=== PATIENT | female | born 1985 | race Caucasian/White ===

== ENCOUNTER 2019-02-07 01:23 | Inpatient (IN) | payer MEDICAID ==
[2019-02-07] MEDS ORDERED: RINGERS SOLUTION,LACTATED 1,000 ML IV ONE (01:57)
[2019-02-07 02:02] LABS: APPEARANCE,URINE CLEAR; BILIRUBIN,URINE NEGATIVE (NEGATIVE); COLOR,URINE YELLOW; GLUCOSE, URINE NEGATIVE (NEGATIVE); KETONES,URINE NEGATIVE (NEGATIVE); LEUKOCYTE ESTERASE,URINE NEGATIVE (NEGATIVE); NITRITE,URINE NEGATIVE (NEGATIVE); PROTEIN,URINE NEGATIVE (NEGATIVE); UROBILINOGEN,URINE NEGATIVE mg/dL (<2.0)
[2019-02-07 02:16] LABS: ABSOLUTE BASOPHILS # (AUTO) 0.1 10^3/uL (0.0-0.2); ABSOLUTE EOSINOPHILS # (AUTO) 0.1 10^3/uL (0.0-0.6); ABSOLUTE LYMPHOCYTES (AUTO) 1.9 10^3/uL (0.5-4.7); ABSOLUTE MONOCYTES (AUTO) 0.6 10^3/uL (0.1-1.4); ABSOLUTE NEUT (AUTO) 6.3 10^3/uL (1.7-8.2); BASOPHILS % (AUTO) 0.7 % (0-2); EOSINOPHILS % (AUTO) 0.7 % (0-6); HEMATOCRIT 33.2 % (36.0-47.0); HEMOGLOBIN 11.5 g/dL (12.0-15.5); MEAN CORPUSCULAR HEMOGLOBIN 31.3 pg (27.0-33.4); MEAN CORPUSCULAR HGB CONC 34.6 g/dL (32.0-36.0); MEAN CORPUSCULAR VOLUME 91 fl (80-97); MONOCYTES % (AUTO) 6.2 % (3-13); PLATELET COUNT 205 10^3/uL (150-450); RED BLOOD COUNT 3.67 10^6/uL (3.72-5.28); RED CELL DISTRIBUTION WIDTH 12.1 % (11.5-14.0); SEGMENTED NEUTROPHILS % (AUTO) 71.4 % (42-78); TOTAL CELLS COUNTED % (AUTO) 100 %; WHITE BLOOD COUNT 8.9 10^3/uL (4.0-10.5)
[2019-02-07 02:21] LABS: URINE AMPHETAMINES SCREEN NEGATIVE; URINE BARBITURATES SCREEN NEGATIVE; URINE BENZODIAZEPINES SCREEN NEGATIVE; URINE COCAINE SCREEN NEGATIVE; URINE METHADONE SCREEN NEGATIVE; URINE PHENCYCLIDINE SCREEN NEGATIVE
[2019-02-07 02:34] LABS: URINE MARIJUANA (THC) SCREEN UNCONFIRMED POSITIVE
[2019-02-07] MEDS: RINGERS SOLUTION,LACTATED 1,000 ML IV PRN ×4 (05:37→12:50)
[2019-02-07] MEDS ORDERED: OXYTOCIN/NORMAL SALINE 20 UNIT/1,000 ML RTUINJ IV PRN ×2 (06:29→21:17)
[2019-02-07] MEDS ORDERED: OXYTOCIN 10 UNIT/ML VIAL ONE (08:03)
[2019-02-07] MEDS ORDERED: LIDOCAINE 1% INJ-PF (10 MG/ML) 30 ML SDV ONE (08:04)
[2019-02-07] MEDS ORDERED: MISOPROSTOL 0.2 MG TABLET ONE (08:04)
[2019-02-07] MEDS ORDERED: OXYTOCIN/NORMAL SALINE 20 UNIT/1,000 ML RTUINJ ONE (08:04)
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
[2019-02-07] MEDS ORDERED: PHENYLEPHRINE HCL INJ/PF 10 MG/1 ML SDV ONE (11:36)
[2019-02-07] MEDS ORDERED: FENTANYL CITRATE INJ/PF 100 MCG/2 ML AMPUL ONE (11:36)
[2019-02-07] MEDS ORDERED: EPHEDRINE SULFATE INJ 50 MG/1 ML AMPULE ONE (11:36)
[2019-02-07] MEDS ORDERED: FENTANYL/BUPIVACAINE/NS/PF 300 MCG/150 ML RTUINJ EPI ONE (11:37)
[2019-02-07] MEDS ORDERED: BUPIVACAINE HCL 0.25 % INJ/PF (2.5 MG/1 ML) 30 ML VIAL ONE (11:37)
--- NOTE | 2019-02-07 12:58 | Warning Signs in Babies ---
VOD Warning Signs Datetime Report Generated by [facility]: 02/07/2019 12:58 VOD#608 -Warning Signs in Babies: Viewed with Parent(s)/Family (02/07/2019 12:57:Pawan Toribio RN)
[2019-02-07] MEDS ORDERED: AMPICILLIN SOD INJ 2 GM VIAL ONE (17:34)
[2019-02-07] MEDS ORDERED: AMPICILLIN SODIUM 2 GM in NORMAL SALINE 100 ML IV ONE (18:00)
[2019-02-07] MEDS ORDERED: MEASLES,MUMPS&RUBELLA VACC/PF 0.5 ML VIAL SUBCUT PRN (21:17)
[2019-02-07] MEDS ORDERED: NA PHOS,M-B/NA PHOS,DI-BA (ADULT) 133 ML ENEMA PR PRN (21:17)
[2019-02-07] MEDS ORDERED: DIPHENHYDRAMINE HCL 25 MG CAPSULE PO PRN (21:17)
[2019-02-07] MEDS ORDERED: PROMETHAZINE HCL 25 MG SUPP.RECT PR PRN (21:17)
[2019-02-07] MEDS ORDERED: MAGNESIUM HYDROXIDE SUSP 30 ML UDCUP PO PRN (21:17)
[2019-02-07] MEDS ORDERED: ACETAMINOPHEN 650 MG SUPP.RECT PR PRN (21:17)
[2019-02-07] MEDS ORDERED: DIPH/PERTUSS(ACELL)/TETANUS VAC/PF 0.5 ML SYR (>=10YO) IM PRN (21:17)
[2019-02-07] MEDS ORDERED: DIBUCAINE 1% OINTMENT 56 GM TP PRN (21:17)
[2019-02-07] MEDS ORDERED: GLYCERIN/WITCH HAZEL LEAF 1 EACH MED..WIPE TP PRN (21:17)
[2019-02-07] MEDS ORDERED: PROMETHAZINE HCL 25 MG TABLET PO PRN (21:17)
[2019-02-07] MEDS ORDERED: PSEUDOEPHEDRINE HCL 30 MG TABLET PO PRN (21:17)
[2019-02-07] MEDS ORDERED: ZOLPIDEM TARTRATE 5 MG TABLET PO PRN (21:17)
[2019-02-07] MEDS ORDERED: PROMETHAZINE HCL INJ 25 MG/1 ML VIAL IV PRN (21:17)
[2019-02-07] MEDS ORDERED: BENZOCAINE/MENTHOL AEROSOL SPRAY 56 ML TOP PRN (21:17)
[2019-02-07] MEDS ORDERED: ACETAMINOPHEN WITH CODEINE #3 TABLET PO PRN (21:17)
[2019-02-07] MEDS ORDERED: AMPICILLIN SODIUM 1 GM in NORMAL SALINE 50 ML IV SCH (22:00)
--- NOTE | 2019-02-07 23:34 | Delivery Summary ---
Del Sum A-C Datetime Report Generated by CPN: 02/07/2019 23:33 DELIVERY PERSONNEL DELIVERY PERSONNEL: [id number] Delivery Doctor:: Sandro Cordoba MD Labor and Delivery Nurse:: Nalini Quintero RNgreen material value added assessor Nurse:: Valerie Nina RN Pure Pak Machine Operator/COUNTERSINKER: Madeline Thomas, ST MATERNAL INFORMATION Delivery Anesthesia: Epidural Medications After Delivery: Pitocin Bolus-Please Comment; Pitocin Drip 20 Units/1000ml NSS Estimated Blood Loss (ml): 250 Maternal Complications: Premature Rupture of Membranes LABOR SUMMARY EDC: 02/02/2019 00:00 No. Babies in Womb: 1 Attempted: No Labor Anesthesia: Epidural LABOR INFORMATION Reason for Induction: Not Applicable Onset of Labor: 02/07/2019 01:47 Complete Dilatation: 02/07/2019 19:43 Oxytocin: Augmentation Group B Beta Strep: Negative Antibiotics # of Doses: 1 Antibiotics Time of Last Dose: 1736 Name of Antibiotic Given: Ampicillin Steroids Given: None Reason Steroids Not Administered: Not Applicable MEMBRANES Membranes Rupture Method: Spontaneous Rupture of Membranes: 02/07/2019 00:30 Length of Rupture (hr): 20.40 Amniotic Fluid Color: Clear Amniotic Fluid Amount: Moderate Amniotic Fluid Odor: Normal STAGES OF LABOR Stage 1 hr: 17 Stage 1 min: 56 Stage 2 hr: 1 Stage 2 min: 11 Stage 3 hr: 0 Stage 3 min: 32 Total Time in Labor hr: 19 Total Time in Labor min: 39 VAGINAL DELIVERY Episiotomy: None Laceration #1: Periurethral Laceration Extension #1: First Degree Laceration #2: Periurethral Laceration Extension #2: First Degree Laceration #3: None Laceration Repair: Yes Laceration Repair Note: repair with 3-0 chromic suture Sponge Count Correct: Vaginal Sweep Performed CSECTION DELIVERY Primary Indication: N/A Secondary Indication: N/A CSection Incision: N/A BABY A INFORMATION Delivery Date/Time: 02/07/2019 20:54 Method of Delivery: Vaginal Born in Route : No : N/A Forceps: N/A Vacuum Extraction: N/A Shoulder Dystocia : No PRESENTATION/POSITION BABY A Presentation: Cephalic Cephalic Presentation: Vertex Vertex Position: Right Occipital Anterior Breech Presentation: N/A PLACENTA INFORMATION BABY A Placenta Delivery Time : 02/07/2019 21:26 Placenta Method of Delivery: Spontaneous Placenta Status: Delivered SCORES BABY A Heart Rate 1 min: >100 bpm Resp Effort 1 min: Good Cry Reflex Irritability 1 min: Cough or Sneeze or Pulls Away Muscle Tone 1 min: Active Motion Color 1 min: Blue/Pale Resuscitation Effort 1 min: Tactile Stimulation SCORE 1 MIN: 8 Heart Rate 5 min: >100 bpm Resp Effort 5 min: Good Cry Reflex Irritability 5 min: Cough or Sneeze or Pulls Away Muscle Tone 5 min: Active Motion Color 5 min: Blue/Pale Resuscitation Effort 5 min: Tactile Stimulation SCORE 5 MIN: 8 INFANT INFORMATION BABY A Gestational Age at Delivery: 40.5 Gestational Status: Full Term- 39- 40.6 Weeks Outcome : Liveborn Infant Condition : Stable Sex: Male IDENTIFICATION BABY A Verification Date/Time: 02/07/2019 21:26 ID Band Number: [id number] Mother's Name Verified: Yes Infant RN Verifying : KelleRadha RN Additional Verifying Personnel: Cristiano Quintero RN WEIGHT/LENGTH BABY A Birthweight (gm): 3181 Infant Weight (lb): 7 Weight (oz): 0 Length (in): 19.50 Length (cm): 49.53 CORD INFORMATION BABY A No. Cord Vessels: 2 Nuchal Cord : Around Neck x1, Tight Cord Blood Taken: Yes-For Eval (Mom's Blood Type - or O+) Suction: Mouth ASSESSMENT BABY A Complications: None Physical Findings at Delivery: Caput Succedaneum Infant Respirations: Grunting Skin to Skin: Yes Leather Goods Sales Representative/ALS Called : No Care By: RN Ingrid, RN Earnest and RN Perkins Transferred To: [facility] BABY B INFORMATION : N/A SIGNATURES Signature: with User ID: [email or web address] : I was personally available for consultation and serving as supervising physician for the MLP.
[2019-02-07] MEDS ORDERED: IBUPROFEN 800 MG TABLET ONE (23:59)
[2019-02-08] MEDS: IBUPROFEN 800 MG TABLET PO SCH ×4 (00:01→21:58)
[2019-02-08] MEDS ORDERED: FAMOTIDINE 20 MG TABLET ONE (00:03)
[2019-02-08] MEDS: FAMOTIDINE 20 MG TABLET PO SCH ×3 (00:04→21:58)
[2019-02-08 07:24] LABS: HEMATOCRIT 27.4 % (36.0-47.0); HEMOGLOBIN 9.5 g/dL (12.0-15.5); MEAN CORPUSCULAR HEMOGLOBIN 31.8 pg (27.0-33.4); MEAN CORPUSCULAR HGB CONC 34.7 g/dL (32.0-36.0); MEAN CORPUSCULAR VOLUME 92 fl (80-97); PLATELET COUNT 149 10^3/uL (150-450); RED BLOOD COUNT 2.99 10^6/uL (3.72-5.28); RED CELL DISTRIBUTION WIDTH 12.3 % (11.5-14.0); WHITE BLOOD COUNT 12.1 10^3/uL (4.0-10.5)
[2019-02-08] MEDS: ACETAMINOPHEN WITH CODEINE #3 TABLET PO PRN ×2 (08:01→20:19)
[2019-02-08] MEDS: SENNOSIDES/DOCUSATE 8.6-50 MG 1 EACH TABLET PO SCH (10:00)
[2019-02-08] MEDS: PRENATAL VITAMIN W DHA CAPSULE PO SCH (10:00)
[2019-02-08] MEDS: DOCUSATE SODIUM 100 MG CAPSULE PO SCH ×2 (10:00→17:54)
[2019-02-08] MEDS: FERROUS SULFATE 325 MG TABLET PO SCH ×2 (10:01→17:55)
--- NOTE | 2019-02-08 10:17 | PDOC PROGRESS REPORT ---
Subjective-OB Progress Note for:: 02/08/19 Subjective: Pt doing well, no concerns. She reports light bleeding, reg diet and voiding without difficulty. Physical Exam (OB) Vital Signs: Temp Pulse Resp BP Pulse Ox 97.8 F 75 15 117/72 99 02/08/19 08:10 02/08/19 08:10 02/08/19 08:10 02/08/19 08:10 02/08/19 08:10 Intake & Output 02/07/19 02/08/19 02/09/19 06:59 06:59 06:59 Intake Total 902 Balance 902 Weight 92.4 kg - Lochia Lochia Amount: Small 10-25 ml Lochia Color: Rubra/Red - Abdomen Description: Tender, Soft, Round Hernia Present: No Fundal Description: Firm, Midline Fundal Height: u/u - u/2 Objective-Diagnostic Laboratory: 02/08/19 06:52 02/08/19 06:52 WBC 12.1 H RBC 2.99 L Hgb 9.5 L Hct 27.4 L MCV 92 MCH 31.8 MCHC 34.7 RDW 12.3 Plt Count 149 L Assessment and Plan(PN) - Assessment and Plan (1) Vaginal delivery Is this a current diagnosis for this admission?: Yes - Time Spent with Patient Time with patient: Less than 15 minutes Medications reviewed and adjusted accordingly: Yes - Disposition Anticipated Discharge: Home Within: within 24 hours
[2019-02-09] MEDS: IBUPROFEN 800 MG TABLET PO SCH ×2 (05:46→14:24)
--- NOTE | 2019-02-09 07:22 | PDOC DISCHARGE SUMMARY ---
Final Diagnosis Discharge Date: 02/09/19 - Final Diagnosis (1) Vaginal delivery Is this a current diagnosis for this admission?: Yes Discharge Data - Discharge Medication Home Medications: Acetaminophen [Tylenol Extra Strength 500 mg Tablet] 2 tab PO Q6 PRN 02/07/19 Doxylamine Succinate [Unisom Sleep Aid] 25 mg PO DAILY PRN 02/07/19 Reason(s) for Admission: Induction of Labor, PROM Procedures: NST Intrapartum Procedure(s): Spontaneous Vaginal Delivery Complication(s): Laceration-Periurethral Laceration-Degree: 1st - Diagnosis Test Laboratory: Temp Pulse Resp BP Pulse Ox 98.6 F 77 18 122/76 100 02/08/19 19:49 02/08/19 19:49 02/08/19 19:49 02/08/19 19:49 02/08/19 19:49 02/07/19 02/07/19 02/08/19 01:33 02:08 06:52 RBC 3.67 L 2.99 L Hgb 11.5 L 9.5 L Hct 33.2 L 27.4 L Urine Opiates Screen NEGATIVE - Discharge information/Instructions Discharge Activity: Balance Activity w/Rest, Pelvic Rest Discharge Diet: Regular Disposition: HOME, SELF-CARE Follow up with: [facility] in: 4, Weeks
[2019-02-09 09:53] VITALS: BP 122/78
[2019-02-09] MEDS: DOCUSATE SODIUM 100 MG CAPSULE PO SCH ×2 (10:33→17:39)
[2019-02-09] MEDS: FAMOTIDINE 20 MG TABLET PO SCH (10:33)
[2019-02-09] MEDS: SENNOSIDES/DOCUSATE 8.6-50 MG 1 EACH TABLET PO SCH (10:33)
[2019-02-09] MEDS: PRENATAL VITAMIN W DHA CAPSULE PO SCH (10:33)
[2019-02-09] MEDS: FERROUS SULFATE 325 MG TABLET PO SCH ×2 (10:33→17:39)
== END 2019-02-09 18:20 | disposition home or self-care (01) | DRG 807 ==
LOC: LC 01:23 → LR 02:07 → 2S 02-08 00:13
PROVIDERS: ADMIT Obstetrics & Gynecology Gynecology; ATTEND Obstetrics & Gynecology Gynecology
PROC: 10E0XZZ Delivery of Products of Conception, External Approach (ICD-10-PCS; principal; 2019-02-07)
PROC: 0UQMXZZ Repair Vulva, External Approach (ICD-10-PCS; 2019-02-07)
PROC: 4A1HXCZ Monitoring of Products of Conception, Cardiac Rate, External Approach (ICD-10-PCS; 2019-02-07)
DX: O69.1XX0 Labor and delivery complicated by cord around neck, with compression, not applicable or unspecified (principal); Z37.0 Single live birth; O71.82 Other specified trauma to perineum and vulva; O99.334 Smoking (tobacco) complicating childbirth; F17.210 Nicotine dependence, cigarettes, uncomplicated; O42.92 Full-term premature rupture of membranes, unspecified as to length of time between rupture and onset of labor; Z3A.40 40 weeks gestation of pregnancy
CPT/HCPCS: 36415; 59025; 80307; 80349; 81005; 84112; 85025; 85027; 86592; 86850; 86900; 86901; G0480; J0290; J2370; J2590; J3010; J3490

== ENCOUNTER 2020-06-11 16:26 | Emergency (ER) | payer SELFPAY ==
[2020-06-11 16:44] VITALS: BP 122/87
--- NOTE | 2020-06-11 17:42 | ER Document Report ---
HPI - HPI Time Seen by Provider: 06/11/20 17:25 Context: Patient is a 35-year-old female who presents to the emergency department with a chief complaint of medication refill. Patient reports that she is a patient over at [facility], she did attempt to get an appointment with them this afternoon but was having issues with her virtual visit. Patient states she would like a refill on her Celexa. She takes this for anxiety. Patient reports that she does feel more anxious. Denies suicidal or homicidal ideation. Patient reports that she normally takes 40 mg daily. Past Medical History - General Information source: Patient - Social History Smoking Status: Unknown if Ever Smoked Lives with: Family Family History: None - Past Medical History Cardiac Medical History: Reports: None Pulmonary Medical History: Reports: None EENT Medical History: Reports: None Neurological Medical History: Reports: None Endocrine Medical History: Reports: None Renal/ Medical History: Reports: None Malignancy Medical History: Reports: None GI Medical History: Reports: None Musculoskeletal Medical History: Reports None Skin Medical History: Reports None Psychiatric Medical History: Reports: None Traumatic Medical History: Reports: None Infectious Medical History: Reports: None Surgical Hx: Negative Vertical Provider Document - CONSTITUTIONAL Agree With Documented VS: Yes Exam Limitations: No Limitations General Appearance: No Apparent Distress - INFECTION CONTROL TRAVEL OUTSIDE OF THE [place] IN LAST 30 DAYS: No - HEENT HEENT: Atraumatic, Normal ENT Exam, Normocephalic, PERRLA - NECK Neck: Normal Inspection - RESPIRATORY Respiratory: Breath Sounds Normal, No Respiratory Distress - CARDIOVASCULAR Cardiovascular: Regular Rate, Regular Rhythm - GI/ABDOMEN Gastrointestinal: Abdomen Soft, Abdomen Non-Tender - MUSCULOSKELETAL/EXTREMETIES Musculoskeletal/Extremeties: FROM, Non-Tender - NEURO Level of Consciousness: Awake, Alert, Appropriate - DERM Integumentary: Warm, Dry, No Rash Course - Re-evaluation Re-evalutation: 06/11/20 19:03 We will give the patient a refill for 3 days of her Celexa. I did verify the dosage from her recent visit at the end of April which was 40 mg daily. Patient does need to follow-up with her prescribing provider on Sunday to get further medication refills. Patient is very thankful, calm and appreciative. - Vital Signs Vital signs: Temp Pulse Resp BP Pulse Ox 98.1 F 78 16 122/87 H 99 06/11/20 16:39 06/11/20 16:39 06/11/20 16:39 06/11/20 16:39 06/11/20 16:39 Discharge - Discharge Clinical Impression: Anxiety Condition: Stable Disposition: HOME, SELF-CARE Instructions: Anxiety (OM) Additional Instructions: *Please follow-up with [facility] on Sunday as you will need a refill on your medications. I have only given you 3 days worth. *Emergency department if you develop increased anxiety, depression, suicidal thoughts. Anxiety The physician feels that some of your health problems are being caused by anxiety. Anxiety affects your health in many ways. Anxiety alone can cause palpitations, sweats, chest pains, abdominal pains, shortness of breath, and headaches. It contributes to ulcer disease, high blood pressure, irritable bowel syndrome, and has been shown to cause flare-ups of many other diseases. Anxiety is not a simple disorder to treat. If the anxiety is due to recent life stresses, you may simply need time to "work through" the changes. If the anxiety is due to an underlying unhappiness with yourself or due to psychiatric disturbance, professional help will be needed. Your physician can refer you for further help if needed. Anti-anxiety medication is occasionally given if the stress is acute or if you are having trouble sleeping. Chronic or frequent use of these medications is not a good idea because the body becomes reliant on it, preventing you from dealing with life's normal stresses. Prescriptions: Citalopram Hydrobromide [Celexa 20 mg Tablet] 40 mg PO DAILY 3 Days #6 tablet Referrals: [facility] [Outside] - Follow up as needed
== END 2020-06-11 18:47 | disposition home or self-care (01) ==
LOC: ER 16:26
DX: F41.9 Anxiety disorder, unspecified (principal)
CPT/HCPCS: 99283